=== PATIENT | female | born 1975 | race Caucasian/White ===

== ENCOUNTER 2019-10-19 08:45 | Outpatient (CLI) | payer OTHER, SELFPAY ==
--- NOTE | ~2019-10-19 | XR_ITS ---
XR ankle RT min 3V, XR foot RT min 3V 10/19/2019 09:20 Indication: Status post fall. Ankle swelling laterally. Procedure: 4 views right ankle and 4 views right foot Comparison: No prior studies for comparison. Findings: There is an acute avulsion fracture anterior superior margin of the talus, best seen on lat eral and oblique images. There is adjacent soft tissue swelling. No other fracture or traumatic malal ignment is identified. Lisfranc joint is intact. No foreign bodies. Impression: 1: Acute avulsion fracture anterior superior margin of the talus with adjacent soft tissue swelling. Reviewed, dictated and finalized at location A. Impression: 1: Acute avulsion fracture anterior superior margin of the talus with adjacent soft tissue swelling. Impression: 1: Acute avulsion fracture anterior superior margin of the talus with adjacent soft tissue swelling.
== END 2019-10-19 08:46 | disposition home or self-care (01) ==
PROVIDERS: PCP Family Medicine; Visit Provider Podiatrist Foot & Ankle Surgery
DX: M79.671 Pain in right foot (principal); S98.911A Complete traumatic amputation of right foot, level unspecified, initial encounter; W19.XXXA Unspecified fall, initial encounter; M79.89 Other specified soft tissue disorders
CPT/HCPCS: 73610; 73630

== ENCOUNTER 2020-01-09 10:36 | Outpatient (CLI) | payer OTHER, SELFPAY ==
--- NOTE | ~2020-01-09 | XR_ITS ---
EXAMINATION: XR foot RT min 3V DATE: 01/09/2020 11:13 INDICATION: Right foot pain TECHNIQUE: Dorsoplantar, lateral, and 2 oblique views of the right foot were obtained. COMPARISON: 10/19/2019 FINDINGS: There is an unchanged linear heterotopic ossification projecting at the anterior/superior a spect of the talus on the lateral view. Adjacent soft tissue swelling persists. No acute fracture is identified. Bone alignment is normal. IMPRESSION: 1. Unchanged avulsion injury at the anterior/superior aspect of the talus. Reviewed, dictated and finalized at location B.
== END 2020-01-09 10:37 | disposition home or self-care (01) ==
PROVIDERS: PCP Family Medicine; Visit Provider Podiatrist Foot & Ankle Surgery
DX: M79.671 Pain in right foot (principal)
CPT/HCPCS: 73630

== ENCOUNTER → 2020-12-19 15:00 | Outpatient (CLI) | payer OTHER, SELFPAY ==
--- NOTE | ~2020-12-19 | XR_ITS ---
XR shoulder RT min 2V 12/19/2020 15:54 Indication: Right shoulder pain Procedure: 4 views right shoulder Comparison: No prior studies for comparison. Findings: No fracture, subluxation or dislocation. There is anatomic alignment. Surrounding osseous s tructures and soft tissues are unremarkable. Impression: 1: No significant abnormality of the right shoulder. Reviewed, dictated and finalized at location A. Impression: 1: No significant abnormality of the right shoulder.
== END ==
PROVIDERS: PCP Family Medicine; Visit Provider Physician Assistant
DX: M25.519 Pain in unspecified shoulder (principal)
CPT/HCPCS: 73030

== ENCOUNTER → 2022-04-22 11:11 | Outpatient (CLI) | payer OTHER, SELFPAY ==
--- NOTE | ~2022-04-22 | US_ITS ---
EXAMINATION: US abdomen complete DATE: 04/22/2022 11:40 INDICATION: Right upper quadrant abdominal pain. TECHNIQUE: Multiple grayscale and Doppler ultrasound images of the abdomen were obtained. COMPARISON: None FINDINGS: The visualized portions of the head and body of the pancreas are normal. Abdominal aorta is normal in caliber. There is a 5 mm hyperechoic mass in the liver. There is normal flow in main darren l vein. The gallbladder is normal in size. No gallstones or gallbladder wall thickening. There is no sonographic Odom sign. The kidneys are normal in size. The spleen is normal in size. Inferior vena cava is normal. IMPRESSION: 1. 5 mm hyperechoic liver mass. In the absence of known malignancy or chronic liver disease, this fin ding is likely a benign mass such as a hemangioma. Reviewed, dictated and finalized at location A. OOD HARVESTER IMPRESSION: 1. 5 mm hyperechoic liver mass. In the absence of known malignancy or chronic l iver disease, this finding is likely a benign mass such as a hemangioma.
== END ==
PROVIDERS: PCP Family Medicine; Visit Provider Physician Assistant
DX: R10.11 Right upper quadrant pain (principal); K76.89 Other specified diseases of liver
CPT/HCPCS: 76700

== ENCOUNTER → 2022-05-06 15:18 | Outpatient (CLI) | payer OTHER, SELFPAY ==
--- NOTE | ~2022-05-06 | CT_ITS ---
EXAMINATION: CT abdomen pelvis wo/w con DATE: 05/06/2022 15:47 INDICATION: Liver mass TECHNIQUE: Computed tomography (CT) of the abdomen and pelvis was performed without and with 100 cc O mnipaque 350 intravenous contrast. The dose-length product was 1147.65 mGy-cm. Automated exposure control and iterative reconstruction technique were employed. COMPARISON: Ultrasound dated 04/22/2022. FINDINGS: Lung bases are unremarkable. Heart size normal. No significant pleural or pericardial effus ion. No significant vascular abnormality. No lymphadenopathy. There is a 6 mm nonenhancing mass in th e left hepatic lobe just lateral to the falciform ligament, consistent with a cyst. There is a calcif ication in the right hepatic lobe. No other focal hepatic masses are identified. The spleen, pancreas , adrenal glands and kidneys are unremarkable. Gallbladder is present. No free air. Small amount of f ree fluid in the pelvis. There is a 2.2 cm left adnexal cyst, likely ovarian. Nonobstructive bowel pa ttern. IMPRESSION: 1. Liver cyst measuring 6 mm, left hepatic lobe. 2: Left adnexal cyst measuring 2.2 cm, likely ovarian. Trace fluid in the pelvis. 3: Small subcentimeter sclerotic lesions of the pelvis, likely benign in the absence of known malign osbaldo. Reviewed, dictated and finalized at location B. ER CATCHER TOBACCO IMPRESSION: 1. Liver cyst measuring 6 mm, left hepatic lobe. 2: Left adnexal cyst measuring 2.2 cm, likely ovarian. Trace fluid in the pelv is. 3: Small subcentimeter sclerotic lesions of the pelvis, likely benign in the a bsence of known malignancy.
== END ==
PROVIDERS: PCP Physician Assistant; Visit Provider Physician Assistant
DX: K76.89 Other specified diseases of liver (principal)
CPT/HCPCS: 74178; Q9967

== ENCOUNTER → 2023-08-17 11:49 | Outpatient (CLI) | payer OTHER, SELFPAY ==
--- NOTE | ~2023-08-17 | XR_ITS ---
EXAMINATION:XR cervical spine 4-5V DATE: 08/17/2023 12:37 INDICATION: Right shoulder pain TECHNIQUE: AP, lateral, lateral swimmers and odontoid views of the cervical spine are provided. COMPARISON: 12/30/2013 FINDINGS: There is straightening of the cervical spine which can be positional or due to muscular spa sm. Alignment is normal. The odontoid process is intact. No fracture is identified. Vertebral body he ights and disk spaces are normal. Prevertebral soft tissues are normal. There is multilevel mild face t and uncovertebral joint osteoarthritis. IMPRESSION: 1. Mild cervical spondylosis without acute findings. Reviewed, dictated and finalized at location B. TING GOODS SALESPERSON
== END ==
PROVIDERS: PCP Physician Assistant; Visit Provider Physician Assistant
DX: M79.2 Neuralgia and neuritis, unspecified (principal); M47.892 Other spondylosis, cervical region
CPT/HCPCS: 72050

== ENCOUNTER 2023-09-14 06:54 | Outpatient (CLI) | payer OTHER, SELFPAY ==
--- NOTE | ~2023-09-14 | MR_ITS ---
EXAMINATION: MR cervical spine wo con DATE: 09/14/2023 07:27 INDICATION: Neck pain. Right shoulder and arm pain. TECHNIQUE: Magnetic resonance imaging (MRI) of the cervical spine was performed without intravenous c ontrast. Sequences included sagittal T2-weighted FSE, sagittal T2-weighted FS FSE, sagittal T1-weight ed FSE, axial MERGE, and axial T2-weighted FSE. COMPARISON: Cervical spine radiographs 08/17/2023 FINDINGS: Bone alignment is normal. Vertebral body heights and intervertebral disc heights are normal . The spinal cord to intensity is normal. The following disc levels are specifically discussed: C2-C3: The disc does not extend beyond the endplate margin. There is no uncovertebral joint osteoarth ritis. There is mild right and moderate left facet joint osteoarthritis. There is no neural foraminal stenosis. There is no central canal stenosis. C3-C4: The disc does not extend beyond the endplate margin. There is no uncovertebral joint osteoarth ritis. There is mild right and severe left facet joint osteoarthritis. There is mild left neural fora reece stenosis. There is no central canal stenosis. C4-C5: The disc does not extend beyond the endplate margin. There is no uncovertebral joint osteoarth ritis. There is moderate bilateral facet joint osteoarthritis. There is no neural foraminal stenosis. There is no central canal stenosis. C5-C6: The disc does not extend beyond the endplate margin. There is no uncovertebral joint osteoarth ritis. There is no facet joint osteoarthritis. There is no neural foraminal stenosis. There is no gloria tral canal stenosis. C6-C7: The disc does not extend beyond the endplate margin. There is no uncovertebral joint osteoarth ritis. There is no facet joint osteoarthritis. There is no neural foraminal stenosis. There is no gloria tral canal stenosis. C7-T1: The disc does not extend beyond the endplate margin. There is no uncovertebral joint osteoarth ritis. There is moderate bilateral facet joint osteoarthritis. There is mild left neural foraminal st enosis. There is no central canal stenosis. IMPRESSION: 1. Mild cervical spondylosis. Reviewed, dictated and finalized at location A.
== END 2023-09-14 06:55 ==
PROVIDERS: PCP Family Medicine; Visit Provider Physical Medicine & Rehabilitation Pain Medicine
DX: M47.22 Other spondylosis with radiculopathy, cervical region (principal)
CPT/HCPCS: 72141

== ENCOUNTER 2023-10-27 13:04 | Outpatient (CLI) | payer OTHER, SELFPAY ==
--- NOTE | 2023-10-27 14:20 | NEURO_ITS ---
Impression: # Complains of discomfort in proximal right upper extremity. # Normal Nerve Conduction Study. No Carpal Tunnel Syndrome or ulnar neuropathy. # Needle/EMG exam revealed minimally decreased motor unit potentials in right Tricep but no denervation potentials. # Clinical correlation recommended, possibility of higher lesion needs to be ruled out. Nerve Conduction Studies Anti Sensory Summary Table Stim Site NR Peak (ms) P-T Amp (?V) Site1 Site2 Delta-P (ms) Dist (cm) Srini (m/s) Right Median Anti Sensory (2-3nd Digit) Wrist 3.2 47.5 Wrist 2-3nd Digit 3.2 14.0 44 Wrist 3.9 67.0 Wrist 2-3nd Digit 3.2 14.0 44 Right Radial Anti Sensory (Base 1st Digit) Wrist 2.0 35.1 Wrist Base 1st Digit 2.0 0.0 Right Ulnar Anti Sensory (5th Digit) Wrist 2.4 60.7 Wrist 5th Digit 2.4 14.0 58 Motor Summary Table Stim Site NR Onset (ms) O-P Amp (mV) Site1 Site2 Delta-0 (ms) Dist (cm) Srini (m/s) Right Median Motor (Abd Poll Brev) Wrist 2.9 10.0 Elbow Wrist 4.9 28.0 57 Elbow 7.8 2.6 Right Ulnar Motor (Abd Dig Minimi) Wrist 2.7 5.5 A Elbow Wrist 4.8 29.0 60 A Elbow 7.5 4.6 F Wave Studies NR F-Lat (ms) L-R F-Lat (ms) Right Median (Mrkrs) (Abd Poll Brev) 28.44 Right Ulnar (Mrkrs) (Abd Dig Min) 27.36 EMG Side Muscle Nerve Root Ins Act Fibs Amp Dur Recrt Comment Right 1stDorInt Ulnar C8-T1 Nml Nml Nml Nml Nml Right Ext Indicis Radial (Post Int) C7-8 Nml Nml Nml Nml Nml Right Ext Digitorum Radial (Post Int) C7-8 Nml Nml Nml Nml Nml Right BrachioRad Radial C5-6 Nml Nml Nml Nml Nml Right PronatorTeres Median C6-7 Nml Nml Nml Nml Nml Right Abd Poll Brev Median C8-T1 Nml Nml Nml Nml Nml Right ABD Dig Min Ulnar C8-T1 Nml Nml Nml Nml Nml Right Biceps Musculocut C5-6 Nml Nml Nml Nml Nml Right Triceps Radial C6-7-8 Nml Nml Nml Nml + Right Deltoid Axillary C5-6 Nml Nml Nml Nml Nml MTDD
== END 2023-10-27 13:05 | disposition home or self-care (01) ==
LOC: ANHNEURO 13:05
PROVIDERS: PCP Family Medicine
DX: M25.511 Pain in right shoulder (principal)
CPT/HCPCS: 95886; 95909

== ENCOUNTER 2024-07-13 16:00 | Outpatient (CLI) | payer OTHER, SELFPAY ==
--- NOTE | ~2024-07-13 | XR_ITS ---
EXAM: XR shoulder RT min 2V DATE: 07/13/2024 16:16 HISTORY: M25.519 - Pain in unspecified shoulder . COMPARISON: 12/19/2020. FINDINGS: Normal mineralization. No fracture or dislocation. No lytic or blastic lesion. Joint space s are maintained. No erosion or periosteal change. Soft tissues within normal limits. IMPRESSION: Unremarkable right shoulder radiograph findings. Reviewed, dictated and finalized at location K. NGUAL RESEARCH INTERVIEWER
--- NOTE | ~2024-07-13 | XR_ITS ---
EXAM: XR elbow RT 2V DATE: 07/13/2024 16:16 HISTORY: M25.521 - Pain in right elbow . COMPARISON: None available. FINDINGS: Normal mineralization. No fracture or dislocation. No lytic or blastic lesion. Joint space s are maintained. No erosion or periosteal change. Soft tissues within normal limits. IMPRESSION: Unremarkable right elbow radiograph findings. Reviewed, dictated and finalized at location K. MODELER
== END 2024-07-13 16:01 | disposition home or self-care (01) ==
LOC: MICIMG 16:02
PROVIDERS: PCP Family Medicine; Visit Provider Orthopaedic Surgery
DX: M25.511 Pain in right shoulder (principal); M25.521 Pain in right elbow
CPT/HCPCS: 73030; 73070

== ENCOUNTER 2024-09-15 15:54 | Outpatient (CLI) | payer OTHER, SELFPAY ==
--- NOTE | ~2024-09-15 | MR_ITS ---
MRI of the cervical spine Clinical History: Radiculopathy Technique: Axial T2-weighted and gradient images, and sagittal T1-weighted, T2-weighted, and STIR jana ges were acquired. COMPARISON: 09/14/2023 Findings: There is no fracture or subluxation of the cervical spine. Vertebral bodies maintain normal height and alignment. No bone marrow signal abnormality seen. No significant disc bulge or herniation seen at any cervical level. No spinal canal stenosis or cord compression cervical spine. There is left facet arthropathy at C3-C4 and C4-C5, but no definite neura l foraminal narrowing evident in the cervical spine. No epidural mass or collection seen. No abnormal signal seen in the spinal cord. Paravertebral soft tissues are unremarkable. Impression: Minimal degenerative spondylosis, as above. Reviewed, dictated and finalized at [facility]. Impression: Minimal degenerative spondylosis, as above.
== END 2024-09-15 15:55 | disposition home or self-care (01) ==
LOC: MICIMG 15:55
PROVIDERS: PCP Family Medicine; Visit Provider Orthopaedic Surgery
DX: M54.12 Radiculopathy, cervical region (principal)
CPT/HCPCS: 72141